=== PATIENT | female | born 1980 | race Caucasian/White ===

== ENCOUNTER 2016-07-18 18:40 | Inpatient (IN) | payer OTHER ==
[~2016-07-18 18:40] MED LIST: methylPREDNISolone SO SUCC INJ 1,000 MG in DEXTROSE 5% IN WATER 100ML INJ 100 ML IV SCH
[2016-07-18 19:00] VITALS: BP 104/66; PULSE 112; RESP 14; TEMP 98.2; O2SAT 100
[2016-07-18 20:00] VITALS: BP 124/80; PULSE 122; RESP 14; TEMP 98.6; O2SAT 100
[2016-07-18] MEDS: ceFAZolin 1,000 MG/NS 100 ML IV SCH ×2 (20:15)
[2016-07-18] MEDS ORDERED: DOPamine INJ PREMIX 500 ML IV SCH (20:15)
[2016-07-18 20:39] LABS: BLOOD GAS BASE EXCESS 7.1 mmol/L (-2-2); BLOOD GAS CARBOXYHEMOGLOBIN 0.8 % (0-4); BLOOD GAS HCO3 33 mmol/L (22-26); BLOOD GAS METHEMOGLOBIN 0.8 % (0-2); BLOOD GAS O2 HGB SATURATION 97 % (90-100); BLOOD GAS OXYGEN CONTENT 14.5 Vol % (12.0-20.0); BLOOD GAS PCO2 67 mmHg (38-42); BLOOD GAS PO2 127 mmHg (61-120); BLOOD GAS TOTAL HGB 10.5 G/DL (12.0-16.0); TEMP CORR TO 98.6
[2016-07-18 20:40] LABS: CRITICAL VALUE YES; OXYGEN DEVICE VENTILATOR
[2016-07-18 20:42] LABS: DRAW SITE ART LINE; FIO2 100 %; STAT NO; VENT SETTINGS PC/AC
[2016-07-18 21:00] VITALS: BP 96/64; PULSE 122; RESP 14; TEMP 99; O2SAT 100
[2016-07-18] MEDS ORDERED: INSULIN HUMAN REGULAR 1,000 UNITS/10 ML VIAL IV PUSH SCH (21:00)
[2016-07-18] MEDS ORDERED: LEVOTHYROXINE SODIUM 100 MCG VIAL IV PUSH ONE (21:00)
[2016-07-18] MEDS ORDERED: LEVOTHYROXINE 400 MCG/NS 500 ML IV SCH ×2 (21:00)
[2016-07-18] MEDS ORDERED: DEXTROSE 50% IN WATER 50 ML VIAL(D50) IV SCH (21:00)
[2016-07-18] MEDS ORDERED: methylPREDNISolone SO SUCC INJ 2,000 MG in DEXTROSE 5% IN WATER INJ 250 ML IV ONE ×2 (21:00)
[2016-07-18 21:08] LABS: AUTOMATED NEUTROPHIL # 7.1 TH/MM3 (1.8-7.7); BASOPHIL % 0.1 % (0.0-2.0); EOSINOPHIL % 0.2 % (0.0-4.0); HEMATOCRIT 34.2 % (35.0-46.0); LYMPH % 10.8 % (9.0-44.0); MEAN CELL VOLUME 83.7 FL (80.0-100.0); MEAN CORPUSCULAR HEMOGLOBIN 27.2 PG (27.0-34.0); MEAN CORPUSCULAR HGB CONC 32.5 % (32.0-36.0); MONO % 8.8 % (0.0-8.0); NEUT % 80.1 % (16.0-70.0); PLATELET COUNT 75 TH/MM3 (150-450); RED BLOOD COUNT 4.08 MIL/MM3 (4.00-5.30); RED CELL DISTRIBUTION WIDTH 17.3 % (11.6-17.2); WHITE BLOOD COUNT 8.9 TH/MM3 (4.0-11.0)
[2016-07-18 21:08] LABS: BACTERIA, URINE RARE /hpf; BLOOD, URINE MOD (NEG); COMMENT (UR) CULT NOT INDICATED; CULTURE IF INDICATED CULT NOT INDICATED; GLUCOSE,URINE NEG (NEG); KETONE, URINE NEG (NEG); NITRITE,URINE NEG (NEG); URINE COLOR LIGHT-YELLOW (YELLW/STRAW)
[2016-07-18 21:32] LABS: BICARBONATE 41.9 MEQ/L (21.0-32.0); INDIRECT BILIRUBIN 0.3 MG/DL (0.0-0.8); MAGNESIUM 2.2 MG/DL (1.5-2.5); POTASSIUM 3.6 MEQ/L (3.5-5.1); TOTAL BILIRUBIN ADULT 0.5 MG/DL (0.2-1.0)
[2016-07-18 21:41] LABS: APTT (PATIENT) 25.2 SEC (24.3-30.1); INTERNATIONAL NORMALIZED RATIO 1.2 RATIO; PROTHROMBIN TIME - PATIENT 13.5 SEC (9.8-11.6)
[2016-07-18 21:45] LABS: HEMO FLAGS AUTO DIFF
[2016-07-18 21:46] LABS: PLATELET ESTIMATE SMEAR LOW (NORMAL); PLATELET MORPHOLOGY NORMAL (NORMAL); SCAN/DIFF AUTO DIFF CONFIRMED
[2016-07-18 22:00] VITALS: BP 116/78; PULSE 118; RESP 14; TEMP 99; O2SAT 100
[2016-07-18 22:22] LABS: CALCIUM-PROTEIN CORRECTED 8.2 MG/DL (8.5-10.1)
[2016-07-18 23:00] VITALS: BP 106/74; PULSE 120; RESP 14; TEMP 99.2; O2SAT 100
[2016-07-18] MEDS ORDERED: SODIUM CHLORIDE 0.9% IV ONE (23:00)
[2016-07-18] MEDS ORDERED: DESMOPRESSIN IV ONE (23:00)
[2016-07-18] MEDS: VASOPRESSIN 80 U/NS 100 ML Titrate per Translife Protocol IV SCH ×2 (23:08)
[2016-07-18] MEDS: SODIUM CHLORIDE 23.4% INJ 38.5 MEQ, POTASSIUM CHLORIDE INJ 20 MEQ in WATER STERILE FOR ... IV SCH (23:08)
[2016-07-19] VITALS (23 sets, daily range): BP systolic 101–138; BP diastolic 60–93; PULSE 99–124; RESP 10–30; TEMP 98.8–100.4; O2SAT 81–100
[2016-07-19 00:14] LABS: BLOOD GAS BASE EXCESS 9.8 mmol/L (-2-2); BLOOD GAS CARBOXYHEMOGLOBIN 1.1 % (0-4); BLOOD GAS HCO3 34 mmol/L (22-26); BLOOD GAS METHEMOGLOBIN 0.7 % (0-2); BLOOD GAS O2 HGB SATURATION 95 % (90-100); BLOOD GAS OXYGEN CONTENT 13.2 Vol % (12.0-20.0); BLOOD GAS PCO2 52 mmHg (38-42); BLOOD GAS PO2 82 mmHg (61-120); BLOOD GAS TOTAL HGB 9.9 G/DL (12.0-16.0); TEMP CORR TO 98.6
[2016-07-19 00:15] LABS: CRITICAL VALUE YES; FIO2 100 %; OXYGEN DEVICE VENTILATOR
[2016-07-19] MEDS ORDERED: ALBUMIN HUMAN 25% 25 GM/100 ML BAGP IV SCH (00:15)
[2016-07-19 00:16] LABS: DRAW SITE ART LINE; STAT NO; VENT SETTINGS PC/AC
[2016-07-19 00:50] LABS: BLOOD GAS BASE EXCESS 5.5 mmol/L (-2-2); BLOOD GAS CARBOXYHEMOGLOBIN 1.2 % (0-4); BLOOD GAS HCO3 29 mmol/L (22-26); BLOOD GAS METHEMOGLOBIN 0.8 % (0-2); BLOOD GAS O2 HGB SATURATION 89 % (90-100); BLOOD GAS OXYGEN CONTENT 12.1 Vol % (12.0-20.0); BLOOD GAS PCO2 41 mmHg (38-42); BLOOD GAS PO2 56 mmHg (61-120); BLOOD GAS TOTAL HGB 9.7 G/DL (12.0-16.0); CRITICAL VALUE YES; OXYGEN DEVICE VENTILATOR; TEMP CORR TO 98.6
[2016-07-19 00:56] LABS: DRAW SITE ART LINE; FIO2 100 %; STAT NO; VENT SETTINGS PC/AC
[2016-07-19] MEDS ORDERED: FUROSEMIDE 40 MG/4 ML VIAL IV SCH (01:00)
[2016-07-19 01:54] LABS: BLOOD GAS BASE EXCESS 6.7 mmol/L (-2-2); BLOOD GAS CARBOXYHEMOGLOBIN 1.3 % (0-4); BLOOD GAS HCO3 31 mmol/L (22-26); BLOOD GAS METHEMOGLOBIN 0.9 % (0-2); BLOOD GAS O2 HGB SATURATION 91 % (90-100); BLOOD GAS OXYGEN CONTENT 12.8 Vol % (12.0-20.0); BLOOD GAS PCO2 47 mmHg (38-42); BLOOD GAS PO2 65 mmHg (61-120); TEMP CORR TO 98.6
[2016-07-19 01:55] LABS: CRITICAL VALUE NO; DRAW SITE ART LINE; FIO2 100 %; OXYGEN DEVICE VENTILATOR; STAT NO; VENT SETTINGS PC/AC
[2016-07-19] MEDS ORDERED: FUROSEMIDE 40 MG/4 ML VIAL IV ONE ×2 (03:45→21:00)
--- NOTE | 2016-07-19 04:18 | RADRPT ---
EXAM DATE/TIME: 07/19/2016 03:20 [facility] COMPARISON: No previous studies available for comparison. INDICATIONS : Shortness of breath. MEDICAL HISTORY : Unobtainable. SURGICAL HISTORY : Unobtainable. ENCOUNTER: Initial ACUITY: 1 day PAIN SCORE: Non-responsive. LOCATION: Bilateral chest FINDINGS: Portable AP view of the chest demonstrates mild enlargement of the cardiac silhouette. There are biba silar pleural-parenchymal opacities. No pneumothorax is visualized. Bones and soft tissues demonstrat e no abnormality. Endotracheal tube is present with tip measuring approximately 2.9 cm from the gali a and nasogastric tube distal tip is in the distal stomach. CONCLUSION: 1. Bibasilar opacities consistent with small pleural effusions with associated volume loss and/or air space consolidation. 2. Mild enlargement of the cardiac silhouette. Ad Cazares MD on July 19, 2016 at 4:15 Board Certified Radiologist. This report was verified electronically.
[2016-07-19] MEDS: ceFAZolin 1,000 MG/NS 100 ML IV SCH ×6 (04:45→20:14)
[2016-07-19 05:35] LABS: BLOOD GAS BASE EXCESS 8.5 mmol/L (-2-2); BLOOD GAS CARBOXYHEMOGLOBIN 1.1 % (0-4); BLOOD GAS HCO3 33 mmol/L (22-26); BLOOD GAS METHEMOGLOBIN 0.8 % (0-2); BLOOD GAS O2 HGB SATURATION 97 % (90-100); BLOOD GAS OXYGEN CONTENT 13.8 Vol % (12.0-20.0); BLOOD GAS PCO2 52 mmHg (38-42); BLOOD GAS PO2 132 mmHg (61-120); BLOOD GAS TOTAL HGB 9.9 G/DL (12.0-16.0); TEMP CORR TO 98.6
[2016-07-19 05:36] LABS: CRITICAL VALUE YES; OXYGEN DEVICE VENTILATOR
[2016-07-19 05:37] LABS: DRAW SITE ART LINE; FIO2 100 %; STAT NO; VENT SETTINGS PC/AC
[2016-07-19 06:09] LABS: ALKALINE PHOSPHATASE 79 U/L (45-117); ALT (GPT) 190 U/L (10-53); ANION GAP 5 MEQ/L (5-15); AST (GOT) 168 U/L (15-37); BLOOD UREA NITROGEN 10 MG/DL (7-18); CHLORIDE 115 MEQ/L (98-107); GLOMERULAR FILTRATION RATE 46 ML/MIN (>89); POTASSIUM 3.1 MEQ/L (3.5-5.1)
[2016-07-19 06:15] LABS: SODIUM (NA) 156 MEQ/L (136-145)
[2016-07-19] MEDS: VASOPRESSIN 80 U/NS 100 ML Titrate per Translife Protocol IV SCH ×2 (06:43)
[2016-07-19] MEDS: methylPREDNISolone SO SUCC INJ 1,000 MG in DEXTROSE 5% IN WATER 100ML INJ 100 ML IV SCH ×4 (07:08→16:35)
[2016-07-19 07:24] LABS: MAGNESIUM 1.9 MG/DL (1.5-2.5)
[2016-07-19] MEDS ORDERED: DOBUTamine 250 MG/D5W 250 ML PREMIX DRIP IV SCH (08:15)
[2016-07-19 09:24] LABS: AUTOMATED NEUTROPHIL # 5.8 TH/MM3 (1.8-7.7); BASOPHIL % 0.1 % (0.0-2.0); HEMO FLAGS AUTO DIFF; LYMPH % 6.3 % (9.0-44.0); LYMPHOCYTE # 0.4 TH/MM3 (1.0-4.8); MEAN CELL VOLUME 83.6 FL (80.0-100.0); MEAN CORPUSCULAR HEMOGLOBIN 27.4 PG (27.0-34.0); MEAN CORPUSCULAR HGB CONC 32.8 % (32.0-36.0); MONO % 3.9 % (0.0-8.0); NEUT % 89.7 % (16.0-70.0); PLATELET COUNT 64 TH/MM3 (150-450); RED BLOOD COUNT 3.59 MIL/MM3 (4.00-5.30); WHITE BLOOD COUNT 6.5 TH/MM3 (4.0-11.0)
--- NOTE | 2016-07-19 09:35 | EC ---
Study Study Date:07/19/2016 STUDY CONCLUSIONS SUMMARY - Left ventricle: The cavity size was normal. Wall thickness was normal. Systolic function was moderately to severely reduced. The estimated ejection fraction was in the range of 30% to 35%. Diffuse hypokinesis. - Aortic valve: Valve area: 1.75cm^2(VTI). Valve area: 1.98cm^2 (Vmax). If LV function is below 40, please consider prescribing an ACEI or ARB or document rationale for non-use. PROCEDURE DATA STUDY STATUS: Elective. Procedure: Transthoracic echocardiography. Image quality was fair. Scanning was performed from the parasternal, apical, and subcostal acoustic windows. Study completion: The patient tolerated the procedure well. Transthoracic echocardiography. M-mode, complete 2D, complete spectral Doppler, and color Doppler. Height: Height: 66.9in. Weight: Weight: 193.6lb. Body mass index: BMI: 30.4kg/m^2. Body surface area: BSA: 1.99m^2. Patient status: Inpatient. CARDIAC ANATOMY LEFT VENTRICLE: The cavity size was normal. Wall thickness was normal. Systolic function was moderately to severely reduced. The estimated ejection fraction was in the range of 30% to 35%. Diffuse hypokinesis. AORTIC VALVE: Trileaflet; normal thickness leaflets. Doppler: Transvalvular velocity was within the normal range. There was no stenosis. No regurgitation. Valve area: 1.75cm^2(VTI). Indexed valve area: 0.88cm^2/m^2 (VTI). Valve area: 1.98cm^2 (Vmax). Indexed valve area: 0.99cm^2/m^2 (Vmax). Mean gradient: 3mm Hg (S). AORTA: Aortic root: The aortic root was normal in size. MITRAL VALVE: Structurally normal valve. Doppler: Transvalvular velocity was within the normal range. There was no evidence for stenosis. Trace regurgitation. LEFT ATRIUM: The atrium was normal in size. RIGHT VENTRICLE: The cavity size was normal. Wall thickness was normal. PULMONIC VALVE: Doppler: Transvalvular velocity was within the normal range. There was no evidence for stenosis. No regurgitation. TRICUSPID VALVE: Structurally normal valve. Doppler: Transvalvular velocity was within the normal range. Trace regurgitation. PULMONARY ARTERY: The main pulmonary artery was normal-sized. Systolic pressure was within the normal range. RIGHT ATRIUM: The atrium was normal in size. PERICARDIUM: There was no pericardial effusion. SYSTEMIC VEINS: Inferior vena cava: The vessel was normal in size. Patient weight: 193.6lb _Ejection fraction:_ 65-75% _Fractional shortening:_ 32% up to 5Kg 5-11.5Kg 11.6-22.9Kg 23-45Kg 45-57Kg Aortic Root 7-13 <17 13-22 17-27 17-27 LA diam 6-13 <23 24-38 33-47 37-40 RVID 10-17 7-15 7-15 7-18 8-17 LVIDd 12-22 <32 24-38 33-47 37-40 LVPW 2-4 3-6 5-7 6-8 7-8 IVS 2-4 3-6 5-7 6-8 7-8 BASIC MEASUREMENTS ADULT NORMAL Left ventricle LV internal dimension, ED, chordal 43.1 mm 43-52 level, PLAX LV internal dimension, ES, chordal 34.2 mm 23-38 level, PLAX Fractional shortening, chordal level, *21 % >29 PLAX LV posterior wall thickness, ED 6.85 mm IVS/LVPW ratio, ED 1.01 <1.3 Volume, ED, MOD, 1-plane 100 ml Volume, ES, MOD, 1-plane 55 ml Ejection fraction, MOD, 1-plane 45 % Stroke volume, MOD, 1-plane 45 ml Volume index, ED, MOD, 1-plane 50 ml/m^2 Volume index, ES, MOD, 1-plane 28 ml/m^2 Stroke index, MOD, 1-plane 22.6 ml/m^2 Volume, ED, MOD, 2-plane 102 ml Volume, ES, MOD, 2-plane 66 ml Ejection fraction, MOD, 2-plane 35 % Stroke volume, MOD, 2-plane 36 ml Volume index, ED, MOD, 2-plane 51 ml/m^2 Volume index, ES, MOD, 2-plane 33 ml/m^2 Stroke index, MOD, 2-plane 18.1 ml/m^2 Ventricular septum Septal thickness, ED 6.89 mm Aortic valve Leaflet separation 20 mm 15-26 Aorta Root diameter, ED 24 mm Left atrium Anterior-posterior dimension 29 mm Anterior-posterior dimension index 1.46 cm/m^2 <2.2 BASIC MEASUREMENTS ADULT NORMAL Aortic valve Leaflet separation 20 mm 15-26 DOPPLER MEASUREMENTS ADULT NORMAL Aortic valve Peak velocity, S 117 cm/s Mean velocity, S 82 cm/s VTI, S 17 cm Mean gradient, S 3 mm Hg Valve area, VTI 1.75 cm^2 Valve area index, VTI 0.88 cm^2/m^2 Valve area, Vmax 1.98 cm^2 Valve area index, Vmax 0.99 cm^2/m^2 Mitral valve Peak E-wave velocity 48.4 cm/s Peak A-wave velocity 63.7 cm/s Peak E/A ratio 0.8 Tricuspid valve Regurgitant peak velocity 208 cm/s Peak RV-RA gradient, S 17 mm Hg Maximal regurgitant velocity 208 cm/s Pulmonic valve Peak velocity, S 94.7 cm/s LEGEND: Mean values are shown as u=mean value. Asterisk (*) sands values outside specified normal range. Prepared and signed by Bettina Marquez [id number]
[2016-07-19 09:45] LABS: BLOOD GAS BASE EXCESS 9.5 mmol/L (-2-2); BLOOD GAS CARBOXYHEMOGLOBIN 1.2 % (0-4); BLOOD GAS HCO3 34 mmol/L (22-26); BLOOD GAS METHEMOGLOBIN 0.8 % (0-2); BLOOD GAS O2 HGB SATURATION 84 % (90-100); BLOOD GAS OXYGEN CONTENT 11.5 Vol % (12.0-20.0); BLOOD GAS PCO2 50 mmHg (38-42); BLOOD GAS PO2 51 mmHg (61-120); BLOOD GAS TOTAL HGB 9.7 G/DL (12.0-16.0); CRITICAL VALUE YES; TEMP CORR TO 98.6
[2016-07-19 09:46] LABS: DRAW SITE ART LINE; FIO2 100 %; OXYGEN DEVICE VENTILATOR; STAT YES; VENT SETTINGS PC/AC
[2016-07-19 10:10] LABS: BANDS 5 % (0-6); CORRECTED NUCLEATED RBC 1 /100 WBC (0-0); NEUTROPHIL # MANUAL DIFF 6.2 TH/MM3 (1.8-7.7); PLATELET ESTIMATE SMEAR LOW (NORMAL); PLATELET MORPHOLOGY NORMAL (NORMAL); POLYS (SEG NEUTROPHILS) 91 % (16-70); SCAN/DIFF FINAL DIFF MANUAL; WBC DIFF SAMPLE 100
--- NOTE | 2016-07-19 10:10 | RADRPT ---
EXAM DATE/TIME: 07/19/2016 08:49 [facility] COMPARISON: CHEST SINGLE AP, July 19, 2016, 3:20. INDICATIONS : Evaluate atelectasis. MEDICAL HISTORY : None. SURGICAL HISTORY : None. ENCOUNTER: Subsequent ACUITY: 1 day PAIN SCORE: Non-responsive. LOCATION: chest FINDINGS: Single AP view of the chest. Endotracheal tube and nasogastric tube remain in place. Persistent bilat eral pulmonary parenchymal opacity with lower lung zone predominance. Persistent small bilateral pleu ral effusions. No significant interval change. No change in cardiac silhouette enlargement. No eviden ce of pneumothorax. CONCLUSION: No significant interval change in bilateral symmetric lower lung zone predominant pulmonary parenchym al opacity, bilateral pleural effusions, and cardiac silhouette enlargement. Andres Mcdonald MD on July 19, 2016 at 10:07 Board Certified Radiologist. This report was verified electronically.
[2016-07-19 10:41] LABS: AMYLASE 32 U/L (25-115)
[2016-07-19 10:43] LABS: CREATINE KINASE 588 U/L (26-192)
[2016-07-19] MEDS: MILRINONE 20 MG/NS 100 ML (0.375 mcg/kg/min) IV SCH ×4 (11:03→21:27)
[2016-07-19] MEDS: RESP: ALBUTEROL 2.5 MG/3 ML NEB (SCH) INH ×4 (11:24→23:59)
[2016-07-19] MEDS ORDERED: FUROSEMIDE 40 MG/4 ML VIAL IV PUSH ONE (12:30)
[2016-07-19] MEDS: SODIUM CHLORIDE 23.4% INJ 38.5 MEQ, POTASSIUM CHLORIDE INJ 20 MEQ in WATER STERILE FOR ... IV SCH (13:22)
[2016-07-19 14:04] LABS: HEMOGLOBIN A1a 0.9 %; HEMOGLOBIN A1b 1.7 %; HEMOGLOBIN Ao 84.5 %; HEMOGLOBIN LA1C 2.8 %; HEMOGLOBIN P3 5.7 %
[2016-07-19 14:18] LABS: AUTOMATED NEUTROPHIL # 8.9 TH/MM3 (1.8-7.7); BASOPHIL % 0.2 % (0.0-2.0); HEMATOCRIT 36.6 % (35.0-46.0); LYMPHOCYTE # 0.5 TH/MM3 (1.0-4.8); MEAN CELL VOLUME 83.6 FL (80.0-100.0); MEAN CORPUSCULAR HEMOGLOBIN 27.4 PG (27.0-34.0); MEAN CORPUSCULAR HGB CONC 32.8 % (32.0-36.0); MONO % 4.6 % (0.0-8.0); NEUT % 90.2 % (16.0-70.0); PLATELET COUNT 64 TH/MM3 (150-450); RED BLOOD COUNT 4.37 MIL/MM3 (4.00-5.30); RED CELL DISTRIBUTION WIDTH 15.6 % (11.6-17.2); WHITE BLOOD COUNT 9.8 TH/MM3 (4.0-11.0)
[2016-07-19 14:23] LABS: HEMO FLAGS AUTO DIFF
[2016-07-19 14:26] LABS: ALT (GPT) 199 U/L (10-53); AMYLASE 28 U/L (25-115); ANION GAP 10 MEQ/L (5-15); APTT (PATIENT) 25.7 SEC (24.3-30.1); AST (GOT) 173 U/L (15-37); BICARBONATE 31.6 MEQ/L (21.0-32.0); BLOOD UREA NITROGEN 14 MG/DL (7-18); CHLORIDE 113 MEQ/L (98-107); GLOMERULAR FILTRATION RATE 41 ML/MIN (>89); INTERNATIONAL NORMALIZED RATIO 1.6 RATIO; MAGNESIUM 1.7 MG/DL (1.5-2.5); POTASSIUM 3.5 MEQ/L (3.5-5.1); PROTHROMBIN TIME - PATIENT 17.5 SEC (9.8-11.6); SODIUM (NA) 155 MEQ/L (136-145)
[2016-07-19 14:30] LABS: ALKALINE PHOSPHATASE 80 U/L (45-117); TOTAL BILIRUBIN ADULT 1.1 MG/DL (0.2-1.0)
[2016-07-19 14:30] LABS: BLOOD GAS BASE EXCESS 8.2 mmol/L (-2-2); BLOOD GAS CARBOXYHEMOGLOBIN 1.3 % (0-4); BLOOD GAS HCO3 31 mmol/L (22-26); BLOOD GAS METHEMOGLOBIN 0.8 % (0-2); BLOOD GAS O2 HGB SATURATION 92 % (90-100); BLOOD GAS PCO2 36 mmHg (38-42); BLOOD GAS PO2 62 mmHg (61-120); BLOOD GAS TOTAL HGB 12.4 G/DL (12.0-16.0); TEMP CORR TO 98.6
[2016-07-19 14:31] LABS: CRITICAL VALUE YES; OXYGEN DEVICE VENTILATOR
[2016-07-19 14:32] LABS: FIO2 100 %; VENT SETTINGS PC/AC
[2016-07-19 14:33] LABS: DRAW SITE ART LINE; STAT YES
[2016-07-19 14:58] LABS: BANDS 7 % (0-6); CORRECTED NUCLEATED RBC 1 /100 WBC (0-0); PLATELET ESTIMATE SMEAR LOW (NORMAL); PLATELET MORPHOLOGY NORMAL (NORMAL); POLYS (SEG NEUTROPHILS) 85 % (16-70); SCAN/DIFF FINAL DIFF MANUAL; WBC DIFF SAMPLE 100
[2016-07-19 16:02] LABS: BLOOD GAS CARBOXYHEMOGLOBIN 1.1 % (0-4); BLOOD GAS HCO3 30 mmol/L (22-26); BLOOD GAS METHEMOGLOBIN 0.9 % (0-2); BLOOD GAS O2 HGB SATURATION 97 % (90-100); BLOOD GAS OXYGEN CONTENT 16.1 Vol % (12.0-20.0); BLOOD GAS PCO2 33 mmHg (38-42); BLOOD GAS PO2 125 mmHg (61-120); BLOOD GAS TOTAL HGB 11.7 G/DL (12.0-16.0); CRITICAL VALUE YES; OXYGEN DEVICE VENTILATOR; TEMP CORR TO 98.6
[2016-07-19 16:03] LABS: DRAW SITE ART LINE; FIO2 100 %; STAT YES; VENT SETTINGS PC/AC
[2016-07-19] MEDS ORDERED: POTASSIUM PHOSPHATE INJ 30 MMOL in SODIUM CHLOR 0.9% 250 ML INJ 250 ML IV ONE (16:15)
[2016-07-19 17:04] LABS: BLOOD, URINE MOD (NEG); GLUCOSE,URINE NEG (NEG); HYALINE CAST, URINE 4 /lpf (RARE); KETONE, URINE NEG (NEG); MUCUS URINE FEW /lpf (OCC); NITRITE,URINE NEG (NEG); URINE COLOR YELLOW (YELLW/STRAW)
[2016-07-19 17:05] LABS: COMMENT (UR) CATH-CULT NOT IND; CULTURE IF INDICATED CATH CULTURE NOT IND
[2016-07-19 17:48] LABS: BLOOD GAS BASE EXCESS 6.7 mmol/L (-2-2); BLOOD GAS HCO3 30 mmol/L (22-26); BLOOD GAS O2 HGB SATURATION 98 % (90-100); BLOOD GAS OXYGEN CONTENT 16.1 Vol % (12.0-20.0); BLOOD GAS PCO2 38 mmHg (38-42); BLOOD GAS PO2 187 mmHg (61-120); BLOOD GAS TOTAL HGB 11.5 G/DL (12.0-16.0); TEMP CORR TO 98.6
[2016-07-19 17:49] LABS: CRITICAL VALUE YES; DRAW SITE ART LINE; FIO2 100 %; OXYGEN DEVICE VENTILATOR; VENT SETTINGS PC/AC
[2016-07-19 17:50] LABS: STAT NO
--- NOTE | 2016-07-19 19:00 | EC ---
Study Study Date:07/19/2016 STUDY CONCLUSIONS SUMMARY LEFT VENTRICLE: Systolic function was moderately to severely reduced. The estimated ejection fraction was in the range of 30% to 35%. Diffuse hypokinesis. If LV function is below 40, please consider prescribing an ACEI or ARB or document rationale for non-use. PROCEDURE DATA Procedure: Transthoracic echocardiography. Image quality was good. Scanning was performed from the parasternal, apical, and subcostal acoustic windows. Study completion: The patient tolerated the procedure well. Transthoracic echocardiography. M-mode, limited 2D, limited spectral Doppler, and color Doppler. CARDIAC ANATOMY LEFT VENTRICLE: Systolic function was moderately to severely reduced. The estimated ejection fraction was in the range of 30% to 35%. Diffuse hypokinesis. BASIC MEASUREMENTS ADULT NORMAL Left ventricle LV internal dimension, ED, chordal level, 49 mm 43-52 PLAX LV internal dimension, ES, chordal level, *42.3 mm 23-38 PLAX Fractional shortening, chordal level, PLAX *14 % >29 LV posterior wall thickness, ED 10.1 mm IVS/LVPW ratio, ED 0.87 <1.3 Ventricular septum Septal thickness, ED 8.8 mm Right ventricle RV internal dimension, ED, PLAX 23.5 mm 19- LEGEND: Mean values are shown as u=mean value. Asterisk (*) sands values outside specified normal range. Prepared and signed by Bettina Marquez [id number]
[2016-07-19 20:59] LABS: AUTOMATED NEUTROPHIL # 8.2 TH/MM3 (1.8-7.7); BASOPHIL % 0.1 % (0.0-2.0); HEMATOCRIT 33.4 % (35.0-46.0); LYMPH % 5.3 % (9.0-44.0); LYMPHOCYTE # 0.5 TH/MM3 (1.0-4.8); MEAN CELL VOLUME 82.9 FL (80.0-100.0); MEAN CORPUSCULAR HGB CONC 33.8 % (32.0-36.0); MONO % 4.8 % (0.0-8.0); NEUT % 89.8 % (16.0-70.0); PLATELET COUNT 59 TH/MM3 (150-450); RED BLOOD COUNT 4.02 MIL/MM3 (4.00-5.30); RED CELL DISTRIBUTION WIDTH 15.8 % (11.6-17.2); WHITE BLOOD COUNT 9.2 TH/MM3 (4.0-11.0)
[2016-07-19 21:04] LABS: HEMO FLAGS AUTO DIFF
[2016-07-19 21:30] LABS: BICARBONATE 33.3 MEQ/L (21.0-32.0); CALCIUM-PROTEIN CORRECTED 7.8 MG/DL (8.5-10.1); POTASSIUM 3.5 MEQ/L (3.5-5.1)
[2016-07-19 21:45] LABS: PLATELET ESTIMATE SMEAR LOW (NORMAL); PLATELET MORPHOLOGY ENLARGED (NORMAL); SCAN/DIFF AUTO DIFF CONFIRMED
[2016-07-20] VITALS (9 sets, daily range): BP systolic 105–134; BP diastolic 71–86; PULSE 94–102; RESP 10; TEMP 98.4–99.1; O2SAT 99–100
[2016-07-20] MEDS: methylPREDNISolone SO SUCC INJ 1,000 MG in DEXTROSE 5% IN WATER 100ML INJ 100 ML IV SCH ×2 (00:15)
[2016-07-20] MEDS ORDERED: FUROSEMIDE 40 MG/4 ML VIAL IV PUSH ONE (02:00)
[2016-07-20] MEDS: SODIUM CHLORIDE 23.4% INJ 38.5 MEQ, POTASSIUM CHLORIDE INJ 20 MEQ in WATER STERILE FOR ... IV SCH (02:35)
[2016-07-20] MEDS: ceFAZolin 1,000 MG/NS 100 ML IV SCH ×2 (04:05)
[2016-07-20] MEDS: RESP: ALBUTEROL 2.5 MG/3 ML NEB (SCH) INH ×2 (04:27→08:00)
[2016-07-20 04:47] LABS: BLOOD, URINE SMALL (NEG); GLUCOSE,URINE NEG (NEG); KETONE, URINE NEG (NEG); MUCUS URINE FEW /lpf (OCC); NITRITE,URINE NEG (NEG); SQUAMOUS EPITHELIAL CELL URINE <1 /hpf (0-5); URINE COLOR LIGHT-YELLOW (YELLW/STRAW)
[2016-07-20 04:52] LABS: BASOPHIL % 0.1 % (0.0-2.0); COMMENT (UR) CATH-CULT NOT IND; CULTURE IF INDICATED CATH CULTURE NOT IND; HEMATOCRIT 31.9 % (35.0-46.0); LYMPH % 5.5 % (9.0-44.0); LYMPHOCYTE # 0.5 TH/MM3 (1.0-4.8); MEAN CELL VOLUME 83.2 FL (80.0-100.0); MEAN CORPUSCULAR HEMOGLOBIN 27.4 PG (27.0-34.0); MONO % 4.3 % (0.0-8.0); NEUT % 90.1 % (16.0-70.0); PLATELET COUNT 68 TH/MM3 (150-450); RED BLOOD COUNT 3.83 MIL/MM3 (4.00-5.30); RED CELL DISTRIBUTION WIDTH 16.1 % (11.6-17.2)
[2016-07-20 04:57] LABS: HEMO FLAGS AUTO DIFF
[2016-07-20 04:59] LABS: ALT (GPT) 153 U/L (10-53); ANION GAP 9 MEQ/L (5-15); AST (GOT) 118 U/L (15-37); BICARBONATE 32.1 MEQ/L (21.0-32.0); BLOOD UREA NITROGEN 18 MG/DL (7-18); CHLORIDE 112 MEQ/L (98-107); GLOMERULAR FILTRATION RATE 41 ML/MIN (>89); SODIUM (NA) 153 MEQ/L (136-145)
[2016-07-20 05:00] LABS: ALKALINE PHOSPHATASE 82 U/L (45-117); TOTAL BILIRUBIN ADULT 0.8 MG/DL (0.2-1.0)
[2016-07-20] MEDS ORDERED: POTASSIUM CHLOR 40 MEQ PREMIX 100 ML IV SCH (05:30)
[2016-07-20 05:43] LABS: APTT (PATIENT) 30.1 SEC (24.3-30.1); INTERNATIONAL NORMALIZED RATIO 1.4 RATIO; PROTHROMBIN TIME - PATIENT 16.2 SEC (9.8-11.6)
[2016-07-20] MEDS ORDERED: EPINEPHrine HCL (1:10,000) 1 MG/10 ML SYRINGE ONE (07:44)
[2016-07-20] MEDS ORDERED: ATROPINE SULFATE 1 MG/10 ML SYRINGE ONE (07:45)
[2016-07-20 09:28] LABS: BANDS 14 % (0-6); CORRECTED NUCLEATED RBC 2 /100 WBC (0-0); NEUTROPHIL # MANUAL DIFF 8.8 TH/MM3 (1.8-7.7); PLATELET ESTIMATE SMEAR LOW (NORMAL); PLATELET MORPHOLOGY NORMAL (NORMAL); POLYS (SEG NEUTROPHILS) 74 % (16-70); SCAN/DIFF FINAL DIFF MANUAL; WBC DIFF SAMPLE 100
[2016-07-20] MEDS ORDERED: LACTATED RINGER'S 1000 ML INJ 2,000 ML IV ONE (10:53)
[2016-07-21 03:53] LABS: HCV RNA PCR IU/ML LESS THAN 15 IU/mL (()); HCV RNA PCR LOGIU/ML LESS THAN 1.18 (())
--- NOTE | 2016-07-21 11:49 | EKG ---
Date Performed: 07/19/2016 Time Performed: 13:04:46 PTAGE: 36 years EKG: Sinus tachycardia. Extensive ST-T changes may be due to myocardial ischemia Abnormal ECG NO PREVIOUS TRACING DOCTOR: Danielle Ramirez Interpretating Date/Time 07/21/2016 11:47:33
== END 2016-07-20 11:42 | disposition expired | DRG 951 ==
LOC: N03B 18:40
DX: Z52.89 Donor of other specified organs or tissues (principal)
CPT/HCPCS: 36430; 71010; 80048; 80053; 80076; 81001; 82150; 82330; 82550; 82552; 82805; 82948; 82977; 83036; 83690; 83735; 84100; 84155; 84484; 85007; 85025; 85027; 85610; 85730; 86803; 86850; 86900; 86901; 86920; 87040; 87086; 87522; 87902; 88307; 88331; 93005; 93306; 94003; 94640; 94770; J0171; J0456; J0461; J0690; J1265; J1815; J1940; J1953; J2260; J2597; J2930; J3480; J7040; J7050; J7060; J7120; J7613; P9016; P9035